=== PATIENT | female | born 1955 | race Caucasian/White ===

== ENCOUNTER 2020-06-18 16:35 | Inpatient (IN) | payer MEDICAID, SELFPAY ==
[2020-06-18] VITALS (45 sets, daily range): BP systolic 101–157; BP diastolic 68–103; PULSE 75–101; RESP 13–42; TEMP 36.7–37.1; O2SAT 74–100
--- NOTE | ~2020-06-18 | XR_ITS ---
XR chest 2V 06/18/2020 17:44 Indication: Bilateral leg swelling and shortness of breath. Smoker. Procedure: PA and lateral views of the chest Comparison: No prior studies for comparison. Findings: Cardiomegaly. Small pleural effusions. Bibasilar airspace disease which may represent atele ctasis, edema or pneumonia. No pneumothorax. The lungs are hyperinflated which is consistent with, bu t not diagnostic of chronic obstructive pulmonary disease. Impression: 1: Bibasilar airspace disease may represent atelectasis, edema and/or pneumonia. 2: Small right pleural effusion. Reviewed, dictated and finalized at location A. LINE PUMP INSTALLER Impression: 1: Bibasilar airspace disease may represent atelectasis, edema and/or pneumonia . 2: Small right pleural effusion.
--- NOTE | ~2020-06-18 | CT_ITS ---
EXAMINATION: CTA chest PE protocol DATE: 06/18/2020 21:02 BLACK POWDER GLAZING OPERATOR INDICATION: Shortness of breath. Elevated d-dimer. TECHNIQUE: Computed tomographic angiography (CTA) of the chest was performed with 100 mL Omnipaque-35 0 intravenous contrast. The dose-length product was 166.58 mGy-cm. Maximum intensity projection 3D-re constructions of the aorta and other arteries were constructed by the technologist on a separate work station. Automated exposure control and iterative reconstruction technique were employed. COMPARISON: This x-ray dated 06/18/2020 FINDINGS: Study is technically adequate without evidence for pulmonary embolism. Evaluation of the pe ripheral pulmonary arteries in the lung bases limited by motion. There are bilateral pleural effusion s, right greater than left. Cardiomegaly. No significant pericardial effusion. There is atheroscleros is of the aorta without evidence for aneurysm or dissection. No thoracic lymphadenopathy. Severe emph ysema. There is lower lobe airspace consolidation dependently, most likely atelectasis. Pneumonia not excluded. Mild wedge compression deformities of mid thoracic vertebra, likely chronic. No acute osse ous abnormality identified. IMPRESSION: 1. No evidence for pulmonary embolism. 2: Small bilateral pleural effusions, right greater than left. 3: Bibasilar dependent airspace disease, most likely atelectasis. Pneumonia not excluded. 4: Severe emphysema. Reviewed, dictated and finalized at location A. K POWDER GLAZING OPERATOR IMPRESSION: 1. No evidence for pulmonary embolism. 2: Small bilateral pleural effusions, right greater than left. 3: Bibasilar dependent airspace disease, most likely atelectasis. Pneumonia no t excluded. 4: Severe emphysema.
--- NOTE | ~2020-06-18 | US_ITS ---
EXAMINATION: US venous doppler [facility] DATE: 06/19/2020 14:28 INDICATION: Lower limb edema. TECHNIQUE: Grayscale ultrasound images without and with compression and Doppler ultrasound images of the bilateral lower extremity veins were obtained. COMPARISON: None. FINDINGS: The visualized portions of right common femoral vein, profunda (deep) femoral vein, femoral vein, pop liteal vein, peroneal veins, posterior tibial veins, and greater saphenous vein outflow are patent. The visualized portions of left common femoral vein, profunda femoral vein, femoral vein, popliteal v ein, peroneal veins, posterior tibial veins, and greater saphenous vein outflow are patent. IMPRESSION: 1. No deep venous thrombosis. Reviewed, dictated and finalized at location A. LOINER
--- NOTE | ~2020-06-18 | XR_ITS ---
EXAMINATION: XR chest 1V portable INDICATION: Respiratory distress TECHNIQUE: Portable AP chest at 0516 hours COMPARISON: 07/08/2020 FINDINGS: The lungs are hyperinflated. No pneumothorax is identified. There are small bilateral pleur al effusions, right greater than left. Cardiomegaly is noted. There are stable bibasilar airspace opa cities. IMPRESSION: 1. Stable cardiomegaly. 2. Small pleural effusions. 3. Bibasilar atelectasis. Reviewed, dictated and finalized at location A. ATIONS CONTROLLER
--- NOTE | 2020-06-18 16:38 | ECG_ITS ---
Measurements Intervals [place] Rate: 99 P: 26 TX: 116 QRS: 125 QRSD: 90 T: 0 QT: 329 QTc: 422 Interpretive Statements SINUS RHYTHM WITH SHORT TX INTERVAL POSSIBLE RIGHT ATRIAL ENLARGEMENT LEFT ATRIAL ENLARGEMENT INCOMPLETE RIGHT BUNDLE BRANCH BLOCK DELAYED PRECORDIAL R/S TRANSITION BORDERLINE T WAVE ABNORMALITY- DIFFUSE LEADS BASELINE ARTIFACT- I, II, III, AVR, AVL, AVF, V2-V6 BORDERLINE ECG Electronically Signed On 06-18-2020 16:52:18 COATING INSPECTOR by Ruy Vieyra D.O.
[2020-06-18 17:39] LABS: Basophils Percent Auto 0.4 % (0.2-1.2); Eosinophils Percent Auto 0.5 % (0-4.4); Hematocrit 50.9 % (37.0-47.0); Hemoglobin 16.1 g/dL (12.0-15.0); Immature Granulocyte Absolute 0.02 K/mm3 (0.00-0.031); Immature Granulocyte Percent A 0.2 % (0-0.5); Lymphocytes Absolute Auto 1.39 K/mm3 (0.9-3.2); Lymphocytes Percent Auto 17.1 % (18.3-44.2); Mean Corpuscular HGB Conc 31.6 g/dl (32-36); Mean Corpuscular Hemoglobin 30.3 pg (26-34); Mean Corpuscular Volume 95.7 fl (80-100); Mean Platelet Volume 10.7 fl (7.4-10.4); Monocytes Absolute Auto 0.9 K/mm3 (0.1-0.6); Monocytes Percent Auto 10.5 % (2.6-8.5); Neutrophils Absolute Auto 5.8 K/mm3 (1.3-6.7); Neutrophils Percent Auto 71.3 % (45.5-73.1); Platelet Count Result 245 k/mm3 (150-375); Red Blood Count 5.32 M/mm3 (4.2-5.4); Red Cell Distribution Width 13.6 % (11.5-14.5); White Blood Count 8.1 K/mm3 (4.5-10.0)
[2020-06-18 18:02] LABS: Blood Urea Nitrogen 32 mg/dL (7-17); Calcium 8.3 mg/dL (8.4-10.2); Carbon Dioxide > 40 mmol/L (22-30); Chloride 92 mmol/L (98-107); Estimated CRCL calculation 42 ml/min; Estimated Glomerular Filt Rate > 60; Glucose 146 mg/dL (65-105); Potassium 4.2 mmol/L (3.4-5.0); Sodium 134 mmol/L (137-145)
--- NOTE | 2020-06-18 18:34 | ECG_ITS ---
Measurements Intervals [place] Rate: 88 P: 60 AR: 96 QRS: 34 QRSD: 84 T: -29 QT: 364 QTc: 441 Interpretive Statements SINUS RHYTHM WITH SHORT AR INTERVAL LEFT ATRIAL ENLARGEMENT INCOMPLETE RIGHT BUNDLE BRANCH BLOCK ST-T WAVE ABNORMALITY IN ANT/INF LEADS- CONSIDER ISCHEMIA ABNORMAL ECG Electronically Signed On 06-20-2020 15:03:58 PROOFING MACHINE OPERATOR by Ruy Vieyra D.O.
--- NOTE | 2020-06-18 18:41 | ED.SOB ---
HPI - SOB/Dyspnea General Chief Complaint: Shortness of Breath/Dyspnea Stated Complaint: leg swelling, SOB Time Seen by Provider: 06/18/20 18:17 Source: patient Mode of arrival: wheelchair Limitations: no limitations History of Present Illness HPI Narrative: Patient is a 65-year-old female complaining of shortness of breath, worse with exertion, accompanied by cough nonproductive x2 weeks. Patient states that when her daughter checked her pulse ox at home it was in the 70s. Patient denies any chest pain, abdominal pain, nausea, vomiting, diarrhea, fever or chills. Related Data Allergies Allergy/AdvReac Type Severity Reaction Status Date / Time No Known Allergies Allergy Unverified 09/09/16 17:20 Review of Systems Review of Systems: All systems reviewed & are unremarkable except as noted in HPI and below Constitutional: Constitutional: Denies body ache(s), Denies chills, Denies excessive sweating, Denies fatigue, Denies fever(s), Denies headache(s), Denies lethargy, Denies malaise, Denies weakness and Denies weight loss Eyes: Eyes: Denies blurry vision, Denies change in vision and Denies loss of vision ENT: Denies dizziness, Denies ear discharge, Denies headache(s), Denies lip swelling, Denies epistaxis, Denies nasal congestion, Denies neck pain, Denies throat swelling and Denies tongue swelling Cardiovascular: Cardiovascular: Denies chest pain, Denies chest pain at rest, Denies chest pain with activity, Denies diaphoresis, Denies rapid heart rate, Denies edema, Denies irregular heart rhythm, Denies lightheadedness and Denies palpitations Respiratory: Respiratory: Denies hemoptysis Gastrointestinal: Gastrointestinal: Denies abdominal pain, Denies melena, Denies hematochezia, Denies diarrhea, Denies nausea, Denies vomiting and Denies hematemesis Musculoskeletal: Musculoskeletal: Denies abnormal gait, Denies deformity, Denies joint swelling, Denies limited range of motion, Denies neck pain and Denies numbness Neurologic: Denies Abnormal speech present, Denies abnormal gait, Denies confusion, Denies dizziness, Denies headache(s), Denies focal weakness, Denies loss of vision, Denies numbness, Denies Other visual disturbances, Denies Sensory deficit (Neuro) and Denies weakness Psychiatric: Psychiatric: Denies confusion, Denies depression, Denies auditory hallucinations, Denies homicidal ideation and Denies suicidal ideation Endocrine: Endocrine: Denies cold intolerance, Denies excessive sweating, Denies fatigue, Denies heat intolerance and Denies palpitations Hematologic/Lymphatic: Hematologic/Lymphatic: Denies easy bleeding and Denies easy bruising Allergic/Immunologic: Allergic/Immunologic: Denies lip swelling, Denies throat swelling and Denies tongue swelling PMFSH Family History Family History Father Family history of renal failure Mother Family history of renal failure Social History Social History Alcohol intake: never Comments Past medical history: None Family history noncontributory Social history +1/2 pack/day smoker, no EtOH use no drug use Exam Const: General: cooperative, comfortable, no acute distress, well developed, alert and awake; No confusion Orientation/consciousness: oriented to person, oriented to place, oriented to time, patient oriented x3 and No confusion Limitations: no limitations Other: Frail, moderate distress, speaking complete sentences HENMT: Head: normal to inspection, normocephalic and atraumatic Ears: hearing grossly normal bilaterally, TM normal on the right and TM normal on the left General nose exam: Normal external nose present, Normal nares present and No nasal discharge present Face and sinus: normal facial exam Mouth: Yes Normal oral and palatal mucosa present, Yes lip normal, Yes tongue normal and Yes oropharynx normal Throat: posterior oropharynx normal, tonsils normal
[2020-06-18] MEDS: methylPREDNISolone SOD SUCC 125 MG VIAL IV PUSH (18:54)
[2020-06-18] MEDS: IPRATROPIUM BR 0.02% INH SOLN 0.5 MG/2.5 ML VIAL INHALATION (19:00)
[2020-06-18] MEDS: ALBUTEROL SULFATE NEB 2.5 MG/0.5 ML INH 5 MG INHALATION (19:00)
[2020-06-18 19:17] LABS: Alveolar/Arterial O2 Gradient 64.2 mmHg; Base Excess ABG 7.2 mEq/l (+/-2.0); Carboxyhemoglobin 8.8 % THb (0-2.0); Fractional Inspired Oxygen 36 %; HCO3 ABG 37.9 mEq/l (22.0-26.0); Methemoglobin ABG 0.4 %THb (0-1.5); Oxygen Content ABG 19.9 %vol (16.0-22.0); Oxygen Saturation ABG 96.1 % (95.0-100.0); Oxyhemoglobin 87.5 % THb (90.0-100.0); PO2 ABG 95.9 mmHg (80.0-100.0); PO2 FiO2 Ratio Arterial Blood 2.66 %; Reduced Hemoglobin 3.3 %THb (0-5.0); Total Hemoglobin 16.1 g/dL (12.0-18.0)
[2020-06-18 19:18] LABS: pH ABG 7.276 (7.350-7.450)
[2020-06-18 19:19] LABS: Device NASAL CANNULA; PCO2 ABG 83.3 mmHg (35.0-45.0); Site Drawn RIGHT BRACHIAL
[2020-06-18 19:29] LABS: D Dimer 4.65 ug/mL (<0.48)
[2020-06-18] MEDS: LACTATED RINGERS 1,000 ML 999 ML IV CONT ×2 (20:28→22:55)
[2020-06-18 22:16] LABS: Alveolar/Arterial O2 Gradient 70.7 mmHg; Base Excess ABG 4.2 mEq/l (+/-2.0); Carboxyhemoglobin 7.3 % THb (0-2.0); Fractional Inspired Oxygen 35 %; Methemoglobin ABG 0.3 %THb (0-1.5); Oxygen Content ABG 19.2 %vol (16.0-22.0); Oxygen Saturation ABG 90.3 % (95.0-100.0); Oxyhemoglobin 84.7 % THb (90.0-100.0); PO2 ABG 72.5 mmHg (80.0-100.0); PO2 FiO2 Ratio Arterial Blood 2.07 %; Reduced Hemoglobin 7.7 %THb (0-5.0); Total Hemoglobin 16.1 g/dL (12.0-18.0)
[2020-06-18 22:17] LABS: PCO2 ABG 91.5 mmHg (35.0-45.0); Site Drawn RIGHT BRACHIAL; pH ABG 7.213 (7.350-7.450)
[2020-06-18 22:18] LABS: Device NON-INVASIVE VENT; Non-Invasive Expiratory Pressure 5 CMH2O; Non-Invasive Inspiratory Pressure 12 CMH2O; Non-Invasive Vent Rate 20 /MIN
--- NOTE | 2020-06-18 23:00 | PC.NURSE ---
Assumed care of pt. at this time. report from MAMTA Contreras
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
[2020-06-19] VITALS (31 sets, daily range): BP systolic 102–122; BP diastolic 67–91; PULSE 70–95; RESP 12–27; TEMP 35.5–36.9; O2SAT 91–100; BMI 21.5
--- NOTE | 2020-06-19 | ECHO_ITS ---
Patient Info Name: Rosita Rodgers Age: 64 years : 1955 Gender: Female Ht: 61 in Wt: 114 lbs BSA: 1.50 m2 HR: 86 bpm BP: 110 / 81 mmHg Heart Rhythm: Sinus Rhythm Technical Quality: Good Exam Date: 06/19/2020 1:09 PM Exam Location: [facility] Patient Status: Inpatient Admit Date: 06/18/2020 Staff Ordering Physician: Peter Quinn MD Farm Loan Representative: Micah Pelaez, NAUN, RT Attending Provider: Lianne Ruby DO Exam Type: CA echo doppler color flow Study Info Indications I50.9 - Heart failure, unspecified Complete two-dimensional, color flow and Doppler transthoracic echocardiogram is performed. Strain analysis performed. Summary 1. Complete two-dimensional, color flow and Doppler transthoracic echocardiogram is performed. 2. Strain analysis performed. 3. Left ventricular chamber dimension is normal. 4. Left ventricular systolic function is normal, estimated at 65-70%. 5. There is mildly increased left ventricular wall thickness. 6. The left ventricular diastolic function is grade I diastolic dysfunction. 7. Global longitudinal strain is borderline at -16 %. 8. 'D-shaped' septum in both systole and diastole consistent with RV pressure and volume overload. 9. Right ventricular chamber dimension is moderately enlarged. 10. Right ventricular systolic function is reduced. 11. Left atrial chamber dimension is moderately enlarged. 12. Right atrial chamber dimension is moderately enlarged. 13. There is mild tricuspid valve regurgitation. 14. Moderate pulmonary hypertension, estimated pulmonary arterial systolic pressure is 48 mmHg. Left Ventricle Left ventricular chamber dimension is normal. Left ventricular systolic function is normal, estimated at 65-70%. There is mildly increased left ventricular wall thickness. The left ventricular diastolic function is grade I diastolic dysfunction. Global longitudinal strain is borderline at -16 %. 'D-shaped' septum in both systole and diastole consistent with RV pressure and volume overload. Right Ventricle Right ventricular chamber dimension is moderately enlarged. Right ventricular systolic function is reduced. Left Atria Left atrial chamber dimension is moderately enlarged. Right Atria Right atrial chamber dimension is moderately enlarged. Atrial Septum Bowing of the interatrial septum to the left by color flow imaging. Aortic Valve The aortic valve is trileaflet. There is mild aortic valve sclerosis. There is no aortic valve stenosis. There is trace aortic valve regurgitation. Pulmonic Valve The pulmonic valve is normal. There is no pulmonic valve stenosis. There is trace pulmonic regurgitation. Mitral Valve The mitral valve has normal leaflets. There is no mitral valve stenosis. There is trace mitral valve regurgitation. Tricuspid Valve The tricuspid valve leaflets are normal. There is no significant tricuspid valve stenosis. There is mild tricuspid valve regurgitation. Moderate pulmonary hypertension, estimated pulmonary arterial systolic pressure is 48 mmHg. Pericardium/Pleural The pericardium appears normal. There is no pericardial effusion. Inferior Vena Cava Dilated inferior vena cava with <50% collapse upon inspiration consistent with elevated right atrial pressure, 20 mmHg. Aorta The aortic root size at the sinus of Valsalva is normal. The prox ascending aorta size is normal. Left Ventricular Outflow Tract
--- NOTE | 2020-06-19 01:15 | ADMGEN ---
This patient, Rosita Rodgers, was admitted to Intensive Care Unit-6. Patient/family oriented to hospital policies and general routines including ID bracelet, bed and alarms, visiting hours, pain management, procedures, bathroom and other care routines, personal items, smoking policy, room service/diet, and visiting hours. Information on how to activate the Rapid Response Team has been discussed. Patient/Family are encouraged to report perceived risks to care and to ask questions if they do not understand what they are told or what they should do.
[2020-06-19 01:40] LABS: Alveolar/Arterial O2 Gradient 141.8 mmHg; Base Excess ABG 2.4 mEq/l (+/-2.0); Carboxyhemoglobin 5.7 % THb (0-2.0); Fractional Inspired Oxygen 45 %; HCO3 ABG 32.9 mEq/l (22.0-26.0); Methemoglobin ABG 0.5 %THb (0-1.5); Oxygen Content ABG 20.3 %vol (16.0-22.0); Oxygen Saturation ABG 94.9 % (95.0-100.0); Oxyhemoglobin 89.5 % THb (90.0-100.0); PO2 ABG 89.2 mmHg (80.0-100.0); PO2 FiO2 Ratio Arterial Blood 1.98 %; Reduced Hemoglobin 4.3 %THb (0-5.0); Total Hemoglobin 16.1 g/dL (12.0-18.0)
[2020-06-19 01:41] LABS: Device NON-INVASIVE VENT; Site Drawn RIGHT BRACHIAL; pH ABG 7.237 (7.350-7.450)
[2020-06-19 01:42] LABS: Non-Invasive Expiratory Pressure 5 CMH2O; Non-Invasive Inspiratory Pressure 16 CMH2O; Non-Invasive Vent Rate 24 /MIN
[2020-06-19] MEDS: ALBUTEROL SULFATE NEB 2.5 MG/0.5 ML INH 5 MG INHALATION ×4 (02:07→19:39)
[2020-06-19] MEDS: IPRATROPIUM BR 0.02% INH SOLN 0.5 MG/2.5 ML VIAL INHALATION ×4 (02:07→19:39)
[2020-06-19] MEDS: SODIUM CHLORIDE 0.9% IV 1,000 ML 100 ML IV CONT (03:00)
[2020-06-19 04:33] LABS: Hematocrit 49.8 % (37.0-47.0); Hemoglobin 15.3 g/dL (12.0-15.0); Mean Corpuscular HGB Conc 30.7 g/dl (32-36); Mean Corpuscular Volume 97.6 fl (80-100); Mean Platelet Volume 10.6 fl (7.4-10.4); Platelet Count Result 220 k/mm3 (150-375); Red Cell Distribution Width 13.5 % (11.5-14.5); White Blood Count 5.9 K/mm3 (4.5-10.0)
[2020-06-19 04:48] LABS: Blood Urea Nitrogen 23 mg/dL (7-17); Carbon Dioxide > 40 mmol/L (22-30); Chloride 96 mmol/L (98-107); Estimated CRCL calculation 62 ml/min; Estimated Glomerular Filt Rate > 60; Glucose 121 mg/dL (65-105); Potassium 5.1 mmol/L (3.4-5.0); Sodium 136 mmol/L (137-145)
[2020-06-19 05:30] LABS: Thyroid Stimulating Hormone Reflex 0.608 uIU/mL (0.465-4.68)
[2020-06-19] MEDS: methylPREDNISolone SOD SUCC 125 MG VIAL 60 MG IV PUSH (05:44)
[2020-06-19 06:32] LABS: Alveolar/Arterial O2 Gradient 109.2 mmHg; Base Excess ABG 4.3 mEq/l (+/-2.0); Carboxyhemoglobin 4.3 % THb (0-2.0); Fractional Inspired Oxygen 40 %; HCO3 ABG 34.8 mEq/l (22.0-26.0); Methemoglobin ABG 0.5 %THb (0-1.5); Modified Allen's Test Unable to perform; Oxygen Content ABG 20.5 %vol (16.0-22.0); Oxygen Saturation ABG 94.2 % (95.0-100.0); Oxyhemoglobin 90.4 % THb (90.0-100.0); PCO2 ABG 80.3 mmHg (35.0-45.0); PO2 ABG 83.7 mmHg (80.0-100.0); PO2 FiO2 Ratio Arterial Blood 2.09 %; Reduced Hemoglobin 4.8 %THb (0-5.0); Site Drawn RIGHT RADIAL; Total Hemoglobin 16.1 g/dL (12.0-18.0); pH ABG 7.255 (7.350-7.450)
[2020-06-19 06:33] LABS: Device NON-INVASIVE VENT; Non-Invasive Expiratory Pressure 5 CMH2O; Non-Invasive Inspiratory Pressure 16 CMH2O; Non-Invasive Vent Rate 24 /MIN
[2020-06-19] MEDS: ENOXAPARIN 40 MG/0.4 ML SYRINGE SUB-Q (09:16)
--- NOTE | 2020-06-19 10:43 | PM.IMPN ---
Progress Note: A&P Assessment and Plan (1) Acute respiratory failure: Qualifiers: Respiratory failure complication: hypoxia and hypercapnia Qualified Code(s): J96.01 - Acute respiratory failure with hypoxia; J96.02 - Acute respiratory failure with hypercapnia Code(s): J96.00 - Acute respiratory failure, unspecified whether with hypoxia or hypercapnia Status: Acute Assessment and Plan: Patient with both hypercapnic and hypoxic respiratory failure on admission. Suspect related to COPD. Pneumonia seems less likely which he may have a bronchitis. Concern for mold at the home that may be contributing to her symptoms. Patient was placed on BiPAP without significant change in her ABG. Will make adjustments are BiPAP. Pulmonary consult. Stop IV fluids. (2) COPD exacerbation: Code(s): J44.1 - Chronic obstructive pulmonary disease with (acute) exacerbation Status: Acute Assessment and Plan: CTA of the chest showing severe emphysema. She has extensive smoking history. Contineu nebulizer treatments, abx and steroids. Add pulmicort. Consider Diamox but her ABG bicarb level is trending downward. (3) Tobacco abuse disorder: Code(s): Z72.0 - Tobacco use Status: Acute Assessment and Plan: Patient was educated about the benefits of smoking cessation. She is interested in stopping smoking. She declines a patch at this time. (4) Hyperkalemia: Code(s): E87.5 - Hyperkalemia Status: Acute Assessment and Plan: Potassium 5.1 today. Could be lab error. Will repeat. Further workup with this persists. (5) Positive D dimer: Code(s): R79.89 - Other specified abnormal findings of blood chemistry Status: Acute Assessment and Plan: CTA chest negative for PE. Some pedal edema which is new so will check dopplers. (6) DVT prophylaxis: Code(s): Z29.9 - Encounter for prophylactic measures, unspecified Status: Acute Assessment and Plan: Lovenox Subjective Date/time seen: 06/19/20 10:43 Interval history: Date of service 06/19/20 64yo female here for acute respiratory failure. Currently on BiPAP. Her dry cough is better. No hx of COPD or asthma. No CP. She does want to quit smoking. Exam Narrative: Exam Narrative: AF 96.0 112/91 95 23 93% bipap Gen - NARD with bipap in place Chest - inspiratory and expiratory rhonchi, nml RR CV - RRR S1/S2; telemetry showing no significant dysrhythmias Abd - Soft, NT/ND, Positive BS Ext -trace pedal edema Psych - Nml mood and affect Skin -diffuse abdominal skin changes from prior vines noted. Objective Data Vital Signs Vital Signs: Vital Signs - 24 hr 06/18/20 16:42 06/18/20 16:47 06/18/20 18:00 Temperature 98.7 F Pulse Rate 101 H 94 Respiratory Rate 18 30 H Blood Pressure 123/78 Pulse Oximetry 74 L 95 06/18/20 18:02 06/18/20 18:09 06/18/20 18:15 Temperature 98.0 F Pulse Rate 93 93 94 Respiratory Rate 42 H 18 28 H Blood Pressure 131/89 131/89 Pulse Oximetry 96 97 96 06/18/20 18:30 06/18/20 18:48 06/18/20 19:00 Temperature Pulse Rate 91 86 88 Respiratory Rate 21 H 34 H 21 H Blood Pressure Pulse Oximetry 95 78 L 97 06/18/20 19:01 06/18/20 19:13 06/18/20 19:22 Temperature Pulse Rate 84 81 83 Respiratory Rate 27 H 26 H 22 H Blood Pressure 135/90 Pulse Oximetry 97 06/18/20 19:30 06/18/20 19:31 06/18/20 19:45 Temperature Pulse Rate 83 81 82 Respiratory Rate 19 23 H 31 H Blood Pressure 126/87 Pulse Oximetry 96 96 96 06/18/20 19:46 06/18/20 19:47 06/18/20 20:03 Temperature Pulse Rate 86 83 82 Respiratory Rate 25 H 27 H 33 H Blood Pressure 135/83 Pulse Oximetry 96 94 94 06/18/20 20:15 06/18/20 20:16 06/18/20 20:30 Temperature Pulse Rate 84 85 85 Respiratory Rate 34 H 28 H 16 Blood Pressure 123/82 Pulse Oximetry 92 93 99 06/18/20 20:31 06/18/20 20:59 06/18/20
--- NOTE | 2020-06-19 10:54 | PC.NURSE ---
Family and patient asked if patient condition was caused by mold in patient's home. Dr. Lopez notified. Dr. Miner at bedside.
--- NOTE | 2020-06-19 11:36 | PM.CNPUL ---
Assessment and Plan Assessment and plan (1) Asthma exacerbation in COPD: Code(s): J44.1 - Chronic obstructive pulmonary disease with (acute) exacerbation; J45.901 - Unspecified asthma with (acute) exacerbation Status: Acute Assessment and Plan: Patient with tobacco use and severe panlobular emphysema with an apical predominance on her CT scan of the chest. She presents now with worsening shortness of breath and hypercarbic respiratory failure (7.28/83/96) on 4 L NC. She has never had an exacerbation and is on no medication at home. Patient is currently being treated with albuterol 2.5 mg neb q.6 hours, ipratropium 0.5 mg nebs q.6 hours, budesonide 0.5 mg q.12 and I will change the Solu-Medrol to 40 mg IV q.6. patient does have some right lower lobe atelectasis versus pneumonia on her CT scan and I agree with ceftriaxone and azithromycin at this time point. Echocardiogram to assess LV, RV size and function and RVSP. Patient did not tolerate BiPAP and I have since placed her on AVAPS RR14, TV450, EPAP5, Inspir min6, Inspire max25, I time 1.00, rise 5. She is more awake and alert now and I have told her that she can use the noninvasive ventilation during the day p.r.n. but that she should wear it at night.I will obtain a blood gas in the morning prior to removing the AVAPS mode. Patient has severe COPD with chronic respiratory failure with an elevated PaCO2 and bicarb from her COPD. she will benefit from nocturnal noninvasive ventilation to improve her symptoms and prevent subsequent hospitalizations. Patient did not tolerate BiPAP 16/5 today when I saw her she said that it was forcing too much air in and it was painful. I have changed the patient to an AVAPS mode which is more comfortable for her now. Will follow with you. History of Present Illness History of Present Illness Consult date: 06/19/20 Requesting physician: Peter Quinn MD Reason for consult: COPD Chief complaint: Acute respiratory failure with hypercapnia, Narrative: This is a new patient consult for COPD with hypercarbic respiratory failure. Is a 64-year-old woman with no past medical history who presented to the ER with shortness of breath. Patient states that she has had 1 year worsening dyspnea on exertion such that now she can only walk 20 ft. Patient denies any fever, chills, chest pain, chronic cough, chronic phlegm production, hemoptysis or lower extremity swelling. ranged from 77-83 and the patient was brought to the emergency room. On 06/18 patient was with her daughter who is a respiratory therapist. The daughter noticed that the patient had less energy and more shortness of breath. The daughter checked the patient's pulse oximetry and her saturations were 77-83%. P patient was brought to the emergency room and her 1st blood gas was pH 7.28/83/96 on 4 L nasal cannula. Of note patient's carboxyhemoglobin was 8.8. In the emergency department patient developed lethargy and they had prep the patient for intubation. At that time the patient then stated she did not want to be intubated. Patient also developed a tachyarrythmia requiring metoprolol IVP. Patient was maintained on BiPAP and her pressures were increased to 16/5 and repeat blood gas was 7.26/80/84 on 40%. Patient had a white blood cell count of 8.1, with the eosinophilic is a 0.5% and a serum bicarb of greater than 40. Patient had a D-dimer of 4.[address] angiogram of the chest that demonstrated severe panlobular emphysema, no evidence of a PE, small bilateral pleural effusions right greater than left and bibasilar dependent infiltrates. Patient was treated for a COPD exacerbation with IV Solu-Medrol, bronchodilators, azithromycin and ceftriaxone and admitted to the intermediate unit. 06/19 Patient is more awake and alert this morning and was off her BiPAP for an hour 8 breakfast without any difficulty. The BiPAP was placed back on the patient per the medical staff and she stated she
[2020-06-19] MEDS: methylPREDNISolone SOD SUCC 40 MG VIAL IV PUSH ×2 (11:54→17:38)
[2020-06-19 12:21] LABS: Potassium 4.5 mmol/L (3.4-5.0)
[2020-06-19] MEDS: BUDESONIDE RESPULE NEB 0.5 MG/2 ML AMP INHALATION (19:39)
[2020-06-20] VITALS (28 sets, daily range): BP systolic 115–122; BP diastolic 75–83; PULSE 80–104; RESP 18–29; TEMP 36.4–37.4; O2SAT 93–98
[2020-06-20] MEDS: methylPREDNISolone SOD SUCC 40 MG VIAL IV PUSH ×2 (00:34→05:00)
[2020-06-20] MEDS: IPRATROPIUM BR 0.02% INH SOLN 0.5 MG/2.5 ML VIAL INHALATION ×4 (01:51→21:04)
[2020-06-20] MEDS: ALBUTEROL SULFATE NEB 2.5 MG/0.5 ML INH 5 MG INHALATION ×4 (01:51→21:03)
[2020-06-20 04:35] LABS: Alveolar/Arterial O2 Gradient 58.9 mmHg; Base Excess ABG 9.4 mEq/l (+/-2.0); Carboxyhemoglobin 1.4 % THb (0-2.0); Fractional Inspired Oxygen 30 %; Methemoglobin ABG 0.4 %THb (0-1.5); Oxygen Content ABG 18.9 %vol (16.0-22.0); Oxygen Saturation ABG 93.3 % (95.0-100.0); Oxyhemoglobin 92.8 % THb (90.0-100.0); PO2 ABG 72.5 mmHg (80.0-100.0); PO2 FiO2 Ratio Arterial Blood 2.42 %; Reduced Hemoglobin 5.4 %THb (0-5.0); Total Hemoglobin 14.5 g/dL (12.0-18.0); pH ABG 7.351 (7.350-7.450)
[2020-06-20 04:36] LABS: Device BIPAP; Modified Allen's Test Pass; PCO2 ABG 70.2 mmHg (35.0-45.0); Site Drawn RIGHT RADIAL
[2020-06-20 04:54] LABS: Hematocrit 45.6 % (37.0-47.0); Hemoglobin 13.8 g/dL (12.0-15.0); Immature Granulocyte Absolute 0.05 K/mm3 (0.00-0.031); Immature Granulocyte Percent A 0.5 % (0-0.5); Lymphocytes Absolute Auto 0.26 K/mm3 (0.9-3.2); Lymphocytes Percent Auto 2.5 % (18.3-44.2); Mean Corpuscular HGB Conc 30.3 g/dl (32-36); Mean Corpuscular Hemoglobin 29.4 pg (26-34); Mean Platelet Volume 10.8 fl (7.4-10.4); Monocytes Absolute Auto 0.7 K/mm3 (0.1-0.6); Monocytes Percent Auto 6.7 % (2.6-8.5); Neutrophils Absolute Auto 9.6 K/mm3 (1.3-6.7); Neutrophils Percent Auto 90.3 % (45.5-73.1); Platelet Count Result 230 k/mm3 (150-375); Red Cell Distribution Width 13.3 % (11.5-14.5); White Blood Count 10.6 K/mm3 (4.5-10.0)
[2020-06-20 05:13] LABS: NT Pro B Type Natriuretic Pept 3200 PG/ML (5-100)
[2020-06-20 05:28] LABS: Alanine Aminotransferase 64 U/L (4-35); Albumin Level 3.1 g/dL (3.5-5.1); Alkaline Phosphatase 95 U/L (38-126); Aspartate Amino Transferase 32 U/L (14-36); Bilirubin,Total 0.3 mg/dL (0.2-1.3); Blood Urea Nitrogen 25 mg/dL (7-17); Calcium 8.5 mg/dL (8.4-10.2); Carbon Dioxide > 40 mmol/L (22-30); Chloride 95 mmol/L (98-107); Estimated CRCL calculation 62 ml/min; Estimated Glomerular Filt Rate > 60; Glucose 165 mg/dL (65-105); Magnesium 2.1 mg/dL (1.6-2.3); Phosphorus 2.2 mg/dL (2.5-4.5); Potassium 4.5 mmol/L (3.4-5.0); Sodium 136 mmol/L (137-145)
[2020-06-20] MEDS: ENOXAPARIN 40 MG/0.4 ML SYRINGE SUB-Q (08:03)
[2020-06-20] MEDS: BUDESONIDE RESPULE NEB 0.5 MG/2 ML AMP INHALATION ×2 (08:43→21:04)
--- NOTE | 2020-06-20 09:39 | PM.PNPUL ---
Progress Note: A&P Assessment and Plan (1) Asthma exacerbation in COPD: Code(s): J44.1 - Chronic obstructive pulmonary disease with (acute) exacerbation; J45.901 - Unspecified asthma with (acute) exacerbation Status: Acute Assessment and Plan: 06/19 Patient with tobacco use and severe panlobular emphysema with an apical predominance on her CT scan of the chest. She presents now with worsening shortness of breath and hypercarbic respiratory failure (7.28/83/96) on 4 L NC. She has never had an exacerbation and is on no medication at home. Patient is currently being treated with albuterol 2.5 mg neb q.6 hours, ipratropium 0.5 mg nebs q.6 hours, budesonide 0.5 mg q.12 and I will change the Solu-Medrol to 40 mg IV q.6. patient does have some right lower lobe atelectasis versus pneumonia on her CT scan and I agree with ceftriaxone and azithromycin at this time point. Echocardiogram LVEF 65-70%, Grade 1 diastolic dysfunction, moderately enlarged RV with reduced function, RA and LA modeerately enlarged, mild TR with RVSP 48. Patient did not tolerate BiPAP and I have since placed her on AVAPS RR14, TV450, EPAP5, Inspir min6, Inspire max25, I time 1.00, rise 5. She is more awake and alert now and I have told her that she can use the noninvasive ventilation during the day p.r.n. but that she should wear it at night.I will obtain a blood gas in the morning prior to removing the AVAPS mode. Patient has severe COPD with chronic respiratory failure with an elevated PaCO2 and bicarb from her COPD. she will benefit from nocturnal noninvasive ventilation to improve her symptoms and prevent subsequent hospitalizations. Patient did not tolerate BiPAP 16/5 today when I saw her she said that it was forcing too much air in and it was painful. I have changed the patient to an AVAPS mode which is more comfortable for her now. 06/20 Patient states she is improved, no wheezes. Wore AVAPS 14, TV 450, Epap5, Min inspire pressure 6, max inspire pressure 25, 30% FIO2 wuth ABG at end of night 7.35/70/73. Walked to bathroom. On 2 L now with saturations 97%. Continue albuterol 2.5 mg neb q.6 hours, ipratropium 0.5 mg nebs q.6 hours, budesonide 0.5 mg q.12 and I will change to prednisone 50 mg PO Q day. Continue ceftriaxone and azithromycin at this time point. Order for noninvasive signed. Will follow with you. Subjective Date/time seen: 06/20/20 09:39 Interval history: Is a 64-year-old woman with no past medical history who presented to the ER with shortness of breath. Patient states that she has had 1 year worsening dyspnea on exertion such that now she can only walk 20 ft. Patient denies any fever, chills, chest pain, chronic cough, chronic phlegm production, hemoptysis or lower extremity swelling. ranged from 77-83 and the patient was brought to the emergency room. On 06/18 patient was with her daughter who is a respiratory therapist. The daughter noticed that the patient had less energy and more shortness of breath. The daughter checked the patient's pulse oximetry and her saturations were 77-83%. P patient was brought to the emergency room and her 1st blood gas was pH 7.28/83/96 on 4 L nasal cannula. Of note patient's carboxyhemoglobin was 8.8. In the emergency department patient developed lethargy and they had prep the patient for intubation. At that time the patient then stated she did not want to be intubated. Patient also developed a tachyarrythmia requiring metoprolol IVP. Patient was maintained on BiPAP and her pressures were increased to 16/5 and repeat blood gas was 7.26/80/84 on 40%. Patient had a white blood cell count of 8.1, with the eosinophilic is a 0.5% and a serum bicarb of greater than 40. Patient had a D-dimer of 4.[address] angiogram of the chest that demonstrated severe panlobular emphysema, no evidence of a PE, small bilateral pleural effusions right greater than left and bibasilar dependent infiltrates. Patient was treated for a C
[2020-06-20] MEDS: predniSONE 40 MG, predniSONE 10 MG 50 MG PO (13:29)
--- NOTE | 2020-06-20 16:40 | PM.IMPN ---
Progress Note: A&P Assessment and Plan (1) Acute respiratory failure: Qualifiers: Respiratory failure complication: hypoxia and hypercapnia Qualified Code(s): J96.01 - Acute respiratory failure with hypoxia; J96.02 - Acute respiratory failure with hypercapnia Code(s): J96.00 - Acute respiratory failure, unspecified whether with hypoxia or hypercapnia Status: Acute Assessment and Plan: Patient with both hypercapnic and hypoxic respiratory failure on admission. Suspect related to COPD. Pneumonia seems less likely which he may have a bronchitis. Concern for mold at the home that may be contributing to her symptoms. Patient was placed on BiPAP without significant change in her ABG. Will make adjustments are BiPAP. Pulmonary consulted. Stop IV fluids. appreciate pulmoanry help.ABG better today. (2) COPD exacerbation: Code(s): J44.1 - Chronic obstructive pulmonary disease with (acute) exacerbation Status: Acute Assessment and Plan: CTA of the chest showing severe emphysema. She has extensive smoking history. Contineu nebulizer treatments, abx and steroids. Add pulmicort. Consider Diamox but her ABG bicarb level is trending downward. (3) Tobacco abuse disorder: Code(s): Z72.0 - Tobacco use Status: Acute Assessment and Plan: Patient was educated about the benefits of smoking cessation. She is interested in stopping smoking. She declines a patch at this time. (4) Hyperkalemia: Code(s): E87.5 - Hyperkalemia Status: Acute Assessment and Plan: analisaor. normal today. (5) Positive D dimer: Code(s): R79.89 - Other specified abnormal findings of blood chemistry Status: Acute Assessment and Plan: CTA chest negative for PE. Some pedal edema which is new so will check dopplers. (6) DVT prophylaxis: Code(s): Z29.9 - Encounter for prophylactic measures, unspecified Status: Acute Assessment and Plan: Lovenox Subjective Date/time seen: 06/20/20 11:30 AM Interval history: patient feels much better. she has been off BIPAP and remaisn on oxygen. no fever, chills. sob on exertion but getting much beter. Review of Systems Constitutional: Constitutional: Denies fatigue, Reports lethargy and Reports weakness Eyes: Eyes: Denies blurry vision and Denies photophobia ENT: Denies epistaxis and Denies nasal congestion Cardiovascular: Cardiovascular: Denies chest pain and Denies lightheadedness Respiratory: Respiratory: Reports cough, Reports dyspnea and Reports dyspnea on exertion Gastrointestinal: Gastrointestinal: Denies abdominal pain, Denies bloating, Denies constipation and Denies diarrhea Genitourinary: Genitourinary: Denies nocturia and Denies flank pain Musculoskeletal: Musculoskeletal: Denies back pain and Denies neck pain Integumentary/Breasts: Skin/Breast: Denies dry skin and Denies rash Neurologic: Denies Abnormal speech present and Denies abnormal gait Psychiatric: Psychiatric: Denies anxiety and Denies confusion Exam Narrative: Exam Narrative: Gen - not in acute distress, comfortable. on nc Chest -no respiratory distess, decreased breath sounds bilaterally CV - RRR S1/S2; telemetry showing no significant dysrhythmias Abd - Soft, NT/ND, Positive BS Ext -trace pedal edema, no cyanosis clubbing Psych - Nml mood and affect Skin -diffuse abdominal skin changes from prior vines noted. Objective Data Vital Signs Vital Signs: Vital Signs - 24 hr 06/19/20 18:00 06/19/20 19:39 06/19/20 19:57 Temperature Pulse Rate 78 95 90 Respiratory Rate 27 H Blood Pressure Pulse Oximetry 99 06/19/20 20:00 06/19/20 20:16 06/19/20 22:00 Temperature 97.4 F L Pulse Rate 83 84 83 Respiratory Rate 12 17 Blood Pressure 122/82 Pulse Oximetry 100 97 06/19/20 22:34 06/20/20 00:00 06/20/20 01:50 Temperature Pulse Rate 87 87 92 Respiratory Rate 23
[2020-06-21] VITALS (28 sets, daily range): BP systolic 116–153; BP diastolic 71–101; PULSE 77–100; RESP 20–28; TEMP 36.6–36.8; O2SAT 86–98
--- NOTE | 2020-06-21 05:39 | PCRCNOTE ---
Patient's 0200 breathing treatment was omitted due to pt being on an apnea link.
[2020-06-21 06:25] LABS: Basophils Percent Auto 0.1 % (0.2-1.2); Eosinophils Percent Auto 0.1 % (0-4.4); Hematocrit 47.8 % (37.0-47.0); Hemoglobin 14.5 g/dL (12.0-15.0); Immature Granulocyte Absolute 0.04 K/mm3 (0.00-0.031); Immature Granulocyte Percent A 0.3 % (0-0.5); Lymphocytes Absolute Auto 0.87 K/mm3 (0.9-3.2); Lymphocytes Percent Auto 6.8 % (18.3-44.2); Mean Corpuscular HGB Conc 30.3 g/dl (32-36); Mean Corpuscular Hemoglobin 29.2 pg (26-34); Mean Corpuscular Volume 96.4 fl (80-100); Mean Platelet Volume 10.4 fl (7.4-10.4); Monocytes Absolute Auto 1.1 K/mm3 (0.1-0.6); Monocytes Percent Auto 8.4 % (2.6-8.5); Neutrophils Absolute Auto 10.9 K/mm3 (1.3-6.7); Neutrophils Percent Auto 84.3 % (45.5-73.1); Platelet Count Result 217 k/mm3 (150-375); Red Blood Count 4.96 M/mm3 (4.2-5.4); Red Cell Distribution Width 13.6 % (11.5-14.5); White Blood Count 12.9 K/mm3 (4.5-10.0)
[2020-06-21 06:45] LABS: Blood Urea Nitrogen 20 mg/dL (7-17); Calcium 8.5 mg/dL (8.4-10.2); Carbon Dioxide > 40 mmol/L (22-30); Chloride 98 mmol/L (98-107); Estimated CRCL calculation 62 ml/min; Estimated Glomerular Filt Rate > 60; Glucose 93 mg/dL (65-105); Potassium 4.3 mmol/L (3.4-5.0); Sodium 139 mmol/L (137-145)
[2020-06-21] MEDS: IPRATROPIUM BR 0.02% INH SOLN 0.5 MG/2.5 ML VIAL INHALATION ×3 (08:07→20:02)
[2020-06-21] MEDS: ALBUTEROL SULFATE NEB 2.5 MG/0.5 ML INH 5 MG INHALATION ×3 (08:07→20:02)
[2020-06-21] MEDS: BUDESONIDE RESPULE NEB 0.5 MG/2 ML AMP INHALATION ×2 (08:07→20:02)
[2020-06-21] MEDS: predniSONE 40 MG, predniSONE 10 MG 50 MG PO (08:19)
[2020-06-21] MEDS: ENOXAPARIN 40 MG/0.4 ML SYRINGE SUB-Q (08:20)
[2020-06-21] MEDS: NICOTINE (*PBKC) 21 MG PATCH 1 PATCH TRANSDERM (08:20)
--- NOTE | 2020-06-21 10:09 | PM.PNPUL ---
Progress Note: A&P Assessment and Plan (1) Asthma exacerbation in COPD: Code(s): J44.1 - Chronic obstructive pulmonary disease with (acute) exacerbation; J45.901 - Unspecified asthma with (acute) exacerbation Status: Acute Assessment and Plan: 06/19 Patient with tobacco use and severe panlobular emphysema with an apical predominance on her CT scan of the chest. She presents now with worsening shortness of breath and hypercarbic respiratory failure (7.28/83/96) on 4 L NC. She has never had an exacerbation and is on no medication at home. Patient is currently being treated with albuterol 2.5 mg neb q.6 hours, ipratropium 0.5 mg nebs q.6 hours, budesonide 0.5 mg q.12 and I will change the Solu-Medrol to 40 mg IV q.6. patient does have some right lower lobe atelectasis versus pneumonia on her CT scan and I agree with ceftriaxone and azithromycin at this time point. Echocardiogram LVEF 65-70%, Grade 1 diastolic dysfunction, moderately enlarged RV with reduced function, RA and LA modeerately enlarged, mild TR with RVSP 48. Patient did not tolerate BiPAP and I have since placed her on AVAPS RR14, TV450, EPAP5, Inspir min6, Inspire max25, I time 1.00, rise 5. She is more awake and alert now and I have told her that she can use the noninvasive ventilation during the day p.r.n. but that she should wear it at night.I will obtain a blood gas in the morning prior to removing the AVAPS mode. Patient has severe COPD with chronic respiratory failure with an elevated PaCO2 and bicarb from her COPD. she will benefit from nocturnal noninvasive ventilation to improve her symptoms and prevent subsequent hospitalizations. Patient did not tolerate BiPAP 16/5 today when I saw her she said that it was forcing too much air in and it was painful. I have changed the patient to an AVAPS mode which is more comfortable for her now. 06/20 Patient states she is improved, no wheezes. Wore AVAPS 14, TV 450, Epap5, Min inspire pressure 6, max inspire pressure 25, 30% FIO2 wuth ABG at end of night 7.35/70/73. Walked to bathroom. On 2 L now with saturations 97%. Continue albuterol 2.5 mg neb q.6 hours, ipratropium 0.5 mg nebs q.6 hours, budesonide 0.5 mg q.12 and I will change to prednisone 50 mg PO Q day. Continue ceftriaxone and azithromycin (day 2) at this time point. Order for noninvasive signed. 06/21 Patient continues to improve. She states she has not been breathing this well in the last few months. Wore AVAPS 14, TV 450, Epap5, Min inspire pressure 6, max inspire pressure 25, 30% FIO2. Overnight oximetry on AVAPS with 28% FIO2 was with Av reduced at sure a carvajal 96%. Lowest saturation 86%. Saturation less than or equal to 88% was 1 minutes or 0% of the monitored time. Saturation less than or equal to 90% was 5 minutes or 1% of the time. Eventually patient wit use trilogy with above settings and 3 L bleed in. No wheezes. Continue albuterol 2.5 mg neb q.6 hours, ipratropium 0.5 mg nebs q.6 hours, budesonide 0.5 mg q.12 and prednisone 50 mg PO Q day. Continue ceftriaxone and azithromycin (day 3). She has no insurance at this point of time so unlikley to have a trilogy approved prior to discharge from hospital. Will assess patient to see if she qualifies for nocturnall oxygen, home O2 assessment prior to discharge. Anticipate DC home on 06/22: Prednisone 50 mg PO through 06/23 levaquin 750 mg PO through 06/25 (for total of 7 days of antibiotics) Beta agonist and muscarinic antagonist that she can afford (Anoro Ellipta, stiolto respimat, combivent respimat or albuterol and atrovent inhalers) Oxygen during day determined by home O2 assessement Trilogy at night with 3 L bleed in or if she does not qualify oOxygen at night until insurance will cover trilogy. Will follow with you. Subjective Date/time seen: 06/21/20 10:09 Interval history: Is a 64-year-old woman with no past medical history who presented to the ER with shortness of breath. Patient states that she h
--- NOTE | 2020-06-21 11:15 | PM.IMPN ---
Progress Note: A&P Assessment and Plan (1) Acute respiratory failure: Qualifiers: Respiratory failure complication: hypoxia and hypercapnia Qualified Code(s): J96.01 - Acute respiratory failure with hypoxia; J96.02 - Acute respiratory failure with hypercapnia Code(s): J96.00 - Acute respiratory failure, unspecified whether with hypoxia or hypercapnia Status: Acute Assessment and Plan: Patient with both hypercapnic and hypoxic respiratory failure on admission. Suspect related to COPD. Pneumonia seems less likely which he may have a bronchitis. Feeling much better now will continue current treatment. Use BiPAP as needed. (2) COPD exacerbation: Code(s): J44.1 - Chronic obstructive pulmonary disease with (acute) exacerbation Status: Acute Assessment and Plan: CTA of the chest showing severe emphysema. She has extensive smoking history. Contineu nebulizer treatments, abx and steroids. Will continue current treatment. (3) Tobacco abuse disorder: Code(s): Z72.0 - Tobacco use Status: Acute Assessment and Plan: Patient was educated about the benefits of smoking cessation. She is interested in stopping smoking. She declines a patch at this time. (4) Hyperkalemia: Code(s): E87.5 - Hyperkalemia Status: Acute Assessment and Plan: Resolved (5) Positive D dimer: Code(s): R79.89 - Other specified abnormal findings of blood chemistry Status: Acute Assessment and Plan: CTA chest negative for PE. Some pedal edema which is new so will check dopplers. (6) DVT prophylaxis: Code(s): Z29.9 - Encounter for prophylactic measures, unspecified Status: Acute Assessment and Plan: Lovenox Additional Plan Patient has acute on chronic hypercapnic hypoxic respiratory failure due to COPD exacerbation. Patient has been started on IV Solu-Medrol and scheduled nebulizer treatments. She remains on BiPAP. Her repeat ABG demonstrates improving pCO2 in stable pH. Will repeat ABG in a.m.. Will continue BiPAP / and will decrease the patient's FiO2 down to 35%. The importance of smoking cessation was discussed with the patient. The patient would benefit from further education prior to discharge as Education was limited due to the patient's critical condition. This document was completed by using [employer] speech recognition software, therefore, consultant in ergonomics and safety variances may occur. Despite proof reading and review of records errors may persist. Subjective Date/time seen: 06/21/20 11:15 Interval history: Patient was seen during the morning rounds today. Feeling slightly better. Decreased shortness of breath. No chest pain. No nausea vomiting abdominal pain. Mood stable. Using BiPAP only as needed basis. Review of Systems Constitutional: Constitutional: Denies fatigue, Reports lethargy and Reports weakness Eyes: Eyes: Denies blurry vision and Denies photophobia ENT: Denies epistaxis, Denies nasal congestion and Denies neck pain Cardiovascular: Cardiovascular: Denies chest pain, Denies lightheadedness, Reports dyspnea and Reports dyspnea on exertion Respiratory: Respiratory: Reports cough, Reports dyspnea and Reports dyspnea on exertion Gastrointestinal: Gastrointestinal: Denies abdominal pain, Denies bloating, Denies constipation and Denies diarrhea Genitourinary: Genitourinary: Denies nocturia and Denies flank pain Musculoskeletal: Musculoskeletal: Denies abnormal gait, Denies back pain and Denies neck pain Integumentary/Breasts: Skin/Breast: Denies dry skin and Denies rash Neurologic: Denies Abnormal speech present, Denies abnormal gait, Denies confusion and Reports weakness Psychiatric: Psychiatric: Denies anxiety and Denies confusion Endocrine: Endocrine: Denies fatigue Exam Narrative: Exam Narrative: Gen - not in acute distress, comfortable. on nc Chest -no
--- NOTE | 2020-06-21 11:24 | PCRCNOTE ---
Trilogy and oxygen arrangements being made with [facility]/[employer] .
--- NOTE | 2020-06-21 11:41 | HOMEO2EVAL ---
Home Oxygen Evaluation RC: Home Oxygen (O2) Evaluation Start: 06/21/20 07:59 Freq: ONCE Status: Active Protocol: RPE Activity Type Activity Date Activity User E-Sign Co-Sign Detail Recorded Client Recorded Date Recorded By Document 06/21/20 11:00 [email or web address] [email or web address] 06/21/20 11:41 DJO Document 06/21/20 11:05 DJO [email or web address] 06/21/20 11:41 DJO Document 06/21/20 11:10 DJO [email or web address] 06/21/20 11:41 DJO Document 06/21/20 11:15 [email or web address] [email or web address] 06/21/20 11:41 DJO Document 06/21/20 11:20 [email or web address] [email or web address] 06/21/20 11:41 DJO Document 06/21/20 11:30 [email or web address] [email or web address] 06/21/20 11:41 DJO 06/21/20 06/21/20 06/21/20 11:00 11:05 11:10 Home O2 Evaluation Test Phase Resting Resting Exercise Oxygen Delivery Room Air Nasal Cannula Nasal Cannula Oxygen Flow Rate (L/min) 1 1 Pulse Oximetry (90-100 %) 87 L 90 86 L Pulse Rate (60-100 beats/min) 85 86 99 Treatment Charges O2 Evaluation - Inpatient 06/21/20 06/21/20 06/21/20 11:15 11:20 11:30 Home O2 Evaluation Test Phase Exercise Exercise Resting Oxygen Delivery Nasal Cannula Nasal Cannula Nasal Cannula Oxygen Flow Rate (L/min) 2 3 1 Pulse Oximetry (90-100 %) 88 L 90 90 Pulse Rate (60-100 beats/min) 100 88 Treatment Charges
--- NOTE | 2020-06-21 13:08 | PC.NURSE ---
PATIENT TRANSFERED TO ROOM 349. REPORT GIVEN TO MAMTA FRIAS. ALL QUESTIONS ANSWERED. BELONGINGS SENT.
--- NOTE | 2020-06-21 13:11 | PC.NURSE ---
Patient to room 349 via hospital wheelchair. Patient oriented to room and policies. Belongings with patient.
[2020-06-22] VITALS (10 sets, daily range): BP systolic 141; BP diastolic 92; PULSE 77–95; RESP 18–20; TEMP 36.5; O2SAT 92–94
--- NOTE | 2020-06-22 00:38 | PC.NURSE ---
Pt refusing to wear bipap. Pt educated on need for mask. RT notified.
[2020-06-22] MEDS: IPRATROPIUM BR 0.02% INH SOLN 0.5 MG/2.5 ML VIAL INHALATION ×2 (02:20→09:07)
[2020-06-22] MEDS: ALBUTEROL SULFATE NEB 2.5 MG/0.5 ML INH 5 MG INHALATION ×2 (02:20→09:07)
[2020-06-22] MEDS: predniSONE 40 MG, predniSONE 10 MG 50 MG PO (08:19)
[2020-06-22] MEDS: ENOXAPARIN 40 MG/0.4 ML SYRINGE SUB-Q (08:19)
[2020-06-22] MEDS: NICOTINE (*PBKC) 21 MG PATCH 1 PATCH TRANSDERM (08:19)
--- NOTE | 2020-06-22 08:35 | PM.PNPUL ---
Progress Note: A&P Assessment and Plan (1) Asthma exacerbation in COPD: Code(s): J44.1 - Chronic obstructive pulmonary disease with (acute) exacerbation; J45.901 - Unspecified asthma with (acute) exacerbation Status: Acute Assessment and Plan: 06/19 Patient with tobacco use and severe panlobular emphysema with an apical predominance on her CT scan of the chest. She presents now with worsening shortness of breath and hypercarbic respiratory failure (7.28/83/96) on 4 L NC. She has never had an exacerbation and is on no medication at home. Patient is currently being treated with albuterol 2.5 mg neb q.6 hours, ipratropium 0.5 mg nebs q.6 hours, budesonide 0.5 mg q.12 and I will change the Solu-Medrol to 40 mg IV q.6. patient does have some right lower lobe atelectasis versus pneumonia on her CT scan and I agree with ceftriaxone and azithromycin at this time point. Echocardiogram LVEF 65-70%, Grade 1 diastolic dysfunction, moderately enlarged RV with reduced function, RA and LA modeerately enlarged, mild TR with RVSP 48. Patient did not tolerate BiPAP and I have since placed her on AVAPS RR14, TV450, EPAP5, Inspir min6, Inspire max25, I time 1.00, rise 5. She is more awake and alert now and I have told her that she can use the noninvasive ventilation during the day p.r.n. but that she should wear it at night.I will obtain a blood gas in the morning prior to removing the AVAPS mode. Patient has severe COPD with chronic respiratory failure with an elevated PaCO2 and bicarb from her COPD. she will benefit from nocturnal noninvasive ventilation to improve her symptoms and prevent subsequent hospitalizations. Patient did not tolerate BiPAP 16/5 today when I saw her she said that it was forcing too much air in and it was painful. I have changed the patient to an AVAPS mode which is more comfortable for her now. 06/20 Patient states she is improved, no wheezes. Wore AVAPS 14, TV 450, Epap5, Min inspire pressure 6, max inspire pressure 25, 30% FIO2 wuth ABG at end of night 7.35/70/73. Walked to bathroom. On 2 L now with saturations 97%. Continue albuterol 2.5 mg neb q.6 hours, ipratropium 0.5 mg nebs q.6 hours, budesonide 0.5 mg q.12 and I will change to prednisone 50 mg PO Q day. Continue ceftriaxone and azithromycin (day 2) at this time point. Order for noninvasive signed. 06/21 Patient continues to improve. She states she has not been breathing this well in the last few months. Wore AVAPS 14, TV 450, Epap5, Min inspire pressure 6, max inspire pressure 25, 30% FIO2. Overnight oximetry on AVAPS with 28% FIO2 was with Av reduced at sure a carvajal 96%. Lowest saturation 86%. Saturation less than or equal to 88% was 1 minutes or 0% of the monitored time. Saturation less than or equal to 90% was 5 minutes or 1% of the time. Eventually patient wit use trilogy with above settings and 3 L bleed in. No wheezes. Continue albuterol 2.5 mg neb q.6 hours, ipratropium 0.5 mg nebs q.6 hours, budesonide 0.5 mg q.12 and prednisone 50 mg PO Q day. Continue ceftriaxone and azithromycin (day 3). She has no insurance at this point of time so unlikley to have a trilogy approved prior to discharge from hospital. Will assess patient to see if she qualifies for nocturnall oxygen, home O2 assessment prior to discharge. O2 assessment required 1 L at rest and 3 L with activity. 06/22 Patient improved and states she is breathing better than she has in the last year. No wheezes. Wore NIV last night PRN. Sats now 93% on 1 L. ready for DC home today. Home DME RT to arrive at 12:00 and will work with her in hospital or at home depending on where she is. DC home on 06/22: Prednisone 50 mg PO through 06/23 levaquin 750 mg PO through 06/25 (for total of 7 days of antibiotics) Beta agonist and muscarinic antagonist that she can afford (Anoro Ellipta1 puff Q day, stiolto respimat 2.5/2.5 1 puff BID, combivent respimat 2 puffs Q 4 while awake or albuterol and atrovent inhalers 2 puffs Q 4
[2020-06-22] MEDS: BUDESONIDE RESPULE NEB 0.5 MG/2 ML AMP INHALATION (09:07)
--- NOTE | 2020-06-22 09:42 | PM.DS ---
DS: Admitting Diagnosis Admitting Diagnosis Admitting Diagnosis: Acute respiratory failure Exacerbation of COPD Nicotine dependence DS: Discharge Diagnosis Discharge Diagnosis (1) Acute respiratory failure: Qualifiers: Respiratory failure complication: hypoxia and hypercapnia Qualified Code(s): J96.01 - Acute respiratory failure with hypoxia; J96.02 - Acute respiratory failure with hypercapnia Code(s): J96.00 - Acute respiratory failure, unspecified whether with hypoxia or hypercapnia Status: Acute Assessment and Plan: Patient with both hypercapnic and hypoxic respiratory failure on admission. Suspect related to COPD. Pneumonia seems less likely which he may have a bronchitis. Feeling much better now will continue current treatment. Use BiPAP as needed. (2) COPD exacerbation: Code(s): J44.1 - Chronic obstructive pulmonary disease with (acute) exacerbation Status: Acute Assessment and Plan: CTA of the chest showing severe emphysema. She has extensive smoking history. Contineu nebulizer treatments, abx and steroids. Will continue current treatment. (3) Tobacco abuse disorder: Code(s): Z72.0 - Tobacco use Status: Acute Assessment and Plan: Patient was educated about the benefits of smoking cessation. She is interested in stopping smoking. She declines a patch at this time. (4) Hyperkalemia: Code(s): E87.5 - Hyperkalemia Status: Acute Assessment and Plan: Resolved (5) Positive D dimer: Code(s): R79.89 - Other specified abnormal findings of blood chemistry Status: Acute Assessment and Plan: CTA chest negative for PE. Some pedal edema which is new so will check dopplers. (6) DVT prophylaxis: Code(s): Z29.9 - Encounter for prophylactic measures, unspecified Status: Acute Assessment and Plan: Lovenox DS: Summary Hospital Course Hospital Course: 64 years old female was admitted complained of any shortness of breath. Patient was found to be in acute check respiratory failure with exacerbation of COPD. Patient was given antibiotics and nebulizer treatment and steroids. Pulmonary consultation was done. Condition was stabilized. Today patient is feeling better so patient was discharged home in stable condition. Time spent discussing smoking cessation with patient: 3 to 10 minutes Status at Discharge Cognitive/behavioral status at discharge: Stable Functional status at discharge: independent ambulation Time Spent with Patient Time attestation: Total time spent providing and/or coordinating discharge services: Time spent: Less than 30 minutes Exam Narrative: Exam Narrative: Gen - not in acute distress, comfortable. on nc Chest -no respiratory distess, decreased breath sounds bilaterally CV - RRR S1/S2; telemetry showing no significant dysrhythmias Abd - Soft, NT/ND, Positive BS Ext -trace pedal edema, no cyanosis clubbing Psych - Nml mood and affect Skin -diffuse abdominal skin changes from prior vines noted. Const: General: No confusion Orientation/consciousness: No confusion Eyes: Direct Ophthalmoscopy: No photophobia Neuro: General: No confusion Speech: No Abnormal speech present Discharge Plan Discharge Attending physician on discharge: Ariel Lakhani Consulting providers: Alvaro Miner Discharging Clinician: Ariel Lakhani Patient Disposition: Home, Self-Care Activity: as tolerated Diet: heart healthy Patient Instructions: Antibiotic Form, How to Stop Smoking (DC), How to Stop Smoking (GEN) Stand Alone Forms: General Discharge Information Follow-up/Referrals: Alvaro Miner MD [Physician] - Discharge Medications: New budesonide [Pulmicort] 0.5 mg/2 mL Suspension For Nebulization 0.5 mg inhalation Q12HRT Qty: 1 RF: 0 nicotine [Nicoderm CQ] 21 mg/24 hr Patch 24 Hour 1 patch transdermal QAM Qty: 7 RF: 0 pre
== END 2020-06-22 12:54 | disposition home or self-care (01) | DRG 133 ==
LOC: ANHED 21:46 → ANHICU 06-19 01:25 → ANH3MED 06-22 09:27 → ANHICU 06-26 10:40
PROVIDERS: Internal Medicine; Internal Medicine Pulmonary Disease; Admitting Provider Internal Medicine; Emergency Provider Emergency Medicine; PCP Internal Medicine; Visit Provider Internal Medicine
DX: J96.22 Acute and chronic respiratory failure with hypercapnia (principal); J43.1 Panlobular emphysema; J96.21 Acute and chronic respiratory failure with hypoxia; J45.901 Unspecified asthma with (acute) exacerbation; F17.210 Nicotine dependence, cigarettes, uncomplicated; E87.5 Hyperkalemia; R79.89 Other specified abnormal findings of blood chemistry; Z66 Do not resuscitate; Z28.21 Immunization not carried out because of patient refusal
CPT/HCPCS: 36415; 36600; 71045; 71046; 71275; 80048; 80053; 82375; 82805; 83050; 83735; 83880; 84100; 84132; 84443; 85025; 85027; 85380; 93005; 93306; 93970; 94003; 94618; 94640; 94667; 94668; 94762; 96361; 96374; 99291; A9270; J0456; J0696; J1650; J2920; J2930; J7030; J7120; J7512; Q9967

== ENCOUNTER 2020-08-07 09:36 | Outpatient (CLI) | payer MEDICAID, SELFPAY ==
--- NOTE | 2020-08-07 16:43 | WPDPFTINT ---
PFT Procedure Performed PFT Procedure Performed Spirometry with Pre/Post Bronchodilator Plethysmography (Lung Vol) Diffusing Cap (DLCO) PFT Interpretation This is a pulmonary function test with pre and post-bronchodilator spirometry, plethysmography and diffusing capacity. The test was performed and results interpreted in accordance with the 2019 and 2005 ATS/ERS Task Force guidelines respectively using the Global Lung Function Initiative-2012 reference equations. Patient demonstrated good effort and cooperation. Reproducibility criteria were met. The quality of the pre bronchodilator spirometry maneuver was Grade A and post bronchodilator spirometry maneuver was Grade A. Findings: Spirometry: There is decreased maximal expiratory airflow at all lung volumes with a concave expiratory flow tracing. The contour the inspiratory flow tracing is normal. The pre bronchodilator FVC is 1.60 L, 58% predicted. The pre bronchodilator FEV1 is 0.85 L, 39% predicted. The FEV1: FVC ratio is 53%. the post bronchodilator FVC is 1.82 L, representing a 14% increase. The post bronchodilator FEV1 is 0.96 L, representing a 13% increase. Spirometry: The total lung capacity is 3.50 L, 76% predicted. The functional residual capacity is 2.31 L, 89% predicted. The residual volume is 1.75, 92% predicted per. Diffusing capacity: The absolute diffusion capacity is 8.2, 41% predicted. The diffusing capacity corrected for alveolar volume is 3.24, 72% predicted Impression: There is a severe obstructive abnormality with significant improvement after inhaling a single dose of albuterol. The lung volumes are normal. The absolute diffusing capacity is severely decreased and normalizes when corrected for alveolar volume. There are no prior studies for comparison
== END 2020-08-07 09:37 | disposition home or self-care (01) ==
LOC: ANHPFT 09:38
PROVIDERS: PCP Internal Medicine; Visit Provider Internal Medicine Pulmonary Disease
DX: R06.00 Dyspnea, unspecified (principal); R94.2 Abnormal results of pulmonary function studies
CPT/HCPCS: 94060; 94726; 94729

== ENCOUNTER 2021-01-02 12:21 | Outpatient (CLI) | payer MEDICAID, SELFPAY ==
--- NOTE | 2021-01-02 12:53 | HOMEO2EVAL ---
Evaluation was performed at [facility]
--- NOTE | 2021-01-02 12:57 | HOMEO2EVAL ---
Evaluation was performed at [facility]
--- NOTE | 2021-01-02 12:58 | HOMEO2EVAL ---
Evaluation was performed at [facility]
[2021-01-02 13:00] VITALS: PULSE 104; O2SAT 95
--- NOTE | 2021-01-02 13:00 | HOMEO2EVAL ---
Evaluation was performed at [facility]
--- NOTE | 2021-01-02 13:02 | HOMEO2EVAL ---
Evaluation was performed at [facility]
--- NOTE | 2021-01-02 13:03 | HOMEO2EVAL ---
Evaluation was performed at [facility]
[2021-01-02 13:05] VITALS: PULSE 106; O2SAT 87
[2021-01-02 13:10] VITALS: PULSE 108; O2SAT 93
--- NOTE | 2021-01-02 13:21 | HOMEO2EVAL ---
Evaluation was performed at [facility] Home Oxygen Evaluation RC: Home Oxygen (O2) Evaluation Start: 01/02/21 13:18 Freq: Status: Active Protocol: RPE Activity Type Activity Date Activity User E-Sign Co-Sign Detail Recorded Client Recorded Date Recorded By Document 01/02/21 13:00 KMV [email or web address] 01/02/21 13:20 KMV Document 01/02/21 13:05 KMV [email or web address] 01/02/21 13:20 KMV Document 01/02/21 13:10 KMV [email or web address] 01/02/21 13:20 KMV 01/02/21 01/02/21 01/02/21 13:00 13:05 13:10 Home O2 Evaluation Test Phase Resting Exercise Exercise Oxygen Delivery Room Air Room Air Nasal Cannula Oxygen Flow Rate (L/min) 1 Pulse Oximetry (90-100 %) 95 87 L 93 Pulse Rate (60-100 beats/min) 104 H 106 H 108 H Activity Tolerance Good Ambulation Distance (feet) 400 Treatment Charges O2 Evaluation - Outpatient
== END 2021-01-02 12:22 | disposition home or self-care (01) ==
PROVIDERS: PCP Internal Medicine; Visit Provider Internal Medicine Pulmonary Disease
DX: J44.9 Chronic obstructive pulmonary disease, unspecified (principal)
CPT/HCPCS: 94618

== ENCOUNTER 2021-10-31 10:09 | Outpatient (CLI) | payer MEDICAID, SELFPAY ==
--- NOTE | ~2021-10-31 | CT_ITS ---
EXAMINATION:CT lung screening DATE: 10/31/2021 11:08 INDICATION: Personal history of tobacco dependence. Smoker who quit 1 year ago with 48 pack year hist ory. TECHNIQUE: Computed tomography (CT) of the chest was performed without intravenous contrast. Automate d exposure control and iterative reconstruction technique were employed. The dose-length product (DLP ) was 64.08 mGy-cm. COMPARISON: Chest CT 06/18/2020 FINDINGS: There is stable mild scarring at the lung apices. There is severe emphysema. A calcified ri ght lung nodule and calcified mediastinal lymph nodes are consistent with old granulomas disc disease . There is mild atelectasis in the lungs. There is mild bronchiectasis in right middle lobe and lingu la. No pleural effusion. The heart size is normal. No pericardial effusion. There is kyphosis of thor acic spine with mild chronic anterior wedging of multiple vertebral bodies and moderate spondylosis. IMPRESSION: 1. Lung-RADS category 2: Benign appearance or behavior. Continue annual screening with noncontrast lo w-dose chest CT in 12 months. Reviewed, dictated and finalized at location A. IMPRESSION: 1. Lung-RADS category 2: Benign appearance or behavior. Continue annual screeni ng with noncontrast low-dose chest CT in 12 months.
== END 2021-10-31 10:10 | disposition home or self-care (01) ==
PROVIDERS: PCP Internal Medicine; Visit Provider Internal Medicine
DX: Z12.2 Encounter for screening for malignant neoplasm of respiratory organs (principal); Z87.891 Personal history of nicotine dependence
CPT/HCPCS: 71271

== ENCOUNTER 2023-05-06 10:37 | Outpatient (CLI) | payer MEDICARE, MEDICAID, SELFPAY ==
--- NOTE | ~2023-05-06 | CT_ITS ---
CT Scan of the Chest without Contrast: Clinical Indication: Lung cancer screening, personal history of nicotine dependence Technique: Contiguous sections were acquired throughout the chest without intravenous contrast. Dose reduction technique was used on this scan by utilizing automated exposure control and iterative recon struction technique. The dose-length product (DLP) was 63.17 mGy-cm. COMPARISON: 10/31/2021 Findings: There is no evidence of any significant mediastinal, hilar or axillary lymphadenopathy. The mediastin al soft tissues appear normal. There is no evidence of pleural or pericardial effusion. There is moderate to advanced emphysema. No distinct pulmonary nodule identified. There is probable r ight basilar and lingular scarring or atelectasis. Images through the upper abdomen reveal no abnormalities. Impression: Lung RADS 1: Negative. 12 month follow-up screening CT advised. Reviewed, dictated and finalized at location . [employer] Impression: Lung RADS 1: Negative. 12 month follow-up screening CT advised.
== END 2023-05-06 10:38 | disposition home or self-care (01) ==
PROVIDERS: PCP Internal Medicine; Visit Provider Physician Assistant
DX: Z12.2 Encounter for screening for malignant neoplasm of respiratory organs (principal); Z87.891 Personal history of nicotine dependence
CPT/HCPCS: 71271